=== PATIENT | male | born 1995 | race Caucasian/White ===

== ENCOUNTER 2023-11-20 10:43 | Emergency (ER) | payer OTHER, SELFPAY ==
[2023-11-20 10:48] VITALS: BP 126/79; PULSE 72; O2SAT 98
[2023-11-20 10:52] VITALS: BP 126/72; PULSE 65; RESP 16; TEMP 36.7; O2SAT 99; BMI 41.7
[2023-11-20] MEDS: LORazepam 2 MG/ML VIAL 1 MG IVPUSH (11:38)
--- NOTE | 2023-11-20 11:40 | ED.SEIZURE ---
HPI - Seizure General Chief Complaint: Seizure Stated Complaint: SZ @ DENTIST OFFICE,H/O SZ,NO MEDS PER EMS Time Seen by Provider: 11/20/23 11:33 Source: patient Mode of arrival: EMS Limitations: no limitations History of Present Illness HPI Narrative: 28-year-old male with history of seizures who presents emergency department for evaluation of seizure. Patient states that he was at the dentist's office in order to get a wisdom tooth pulled. He states that the dentist was injected medication in to his jaw when his vision faded to ocasio and then to black. He states that he then has no memory of what happened but then woke up and felt normal. Patient was sent to the emergency department from the dentist office for evaluation of possible seizure.. He states that he was told that these episodes are seizures but does not have a neurologist. He states that several years ago when he was in [place] had a similar event and initially had a normal EEG but then had an abnormal EEG. He was started on Keppra but stop taking the medication after he lost his insurance. He states that 1 month prior to coming to emergency department he had COVID-19 and had a fever as high as 106. He states that he got out of bed to go in to the bathtub cool off when he had another event where his vision faded to block any passed out. While he was getting an IV started and blood drawn here in the emergency department he again had another episode where his vision faded to black. Nurses described that the patient lost consciousness and had diffuse twitching of his muscles. When I went into the room the patient was awake and able to answer questions and I did not witness the event. Seizure History: Yes Related Data Allergies Allergy/AdvReac Type Severity Reaction Status Date / Time No Known Allergies Allergy Verified 11/20/23 10:52 Review of Systems Review of Systems: Yes all other systems are reviewed and are negative [facility] Past Medical History [facility] Narrative: Past medical history: Seizures. Social history: He denies tobacco alcohol and drug use. Medical History Seizure Social History Social History Smoked in Last 30 Days: No Use of substances other than those prescribed or required for medical reasons: No Advance Directives: No Physical Exam Vital Signs: Vital Signs: Last Vital Signs Temp 98.0 F 11/20/23 10:52 Pulse 72 11/20/23 13:11 Resp 13 11/20/23 13:11 BP 119/61 11/20/23 13:11 Pulse Ox 99 11/20/23 13:11 O2 Del Method Room Air 11/20/23 13:11 BMI result Body Mass Index 41.7 Vital signs were normal Exam: General: Awake, alert in no distress Head: Normocephalic, atraumatic EENT: PERRL, Lids normal, sclera normal, conjunctiva normal, nose normal , ears normal, throat without erythema or exudates Neck: Supple, no adenopathy, no trachea midline or C-spine tenderness Lung: breath sounds symmetric, no wheezing, rales or rhonchi Chest: symmetric movement, nontender Heart: regular rate and rhythm, normal S1, S2 no murmurs or rubs Abdomen: soft, non-tender, nondistended, normal bowel sounds Back: no vertebral tenderness, no CVAT Extremities: no deformities, moves all extremities symmetrically Neuro: Awake, alert, oriented, normal speech, cranial nerves intact, moves all extremities symmetrically Psych: Pleasant, cooperative Medications Administered Discontinued Medications Generic Name Dose Route Start Last Admin Trade Name Rupertq PRN Reason Stop Dose Admin Lorazepam 1 mg 11/20/23 11:34 11/20/23 11:38 Lorazepam 2 Mg/Ml Vial IVPUSH 11/20/23 11:35 1 mg STAT STA Administration Medical Decision Making Medical Decision Making [facility] Narrative: 28-year-old male with a seizure disorder who presents emergency department for evaluation for seizure-like event occurred at his dentist's office. Patient had 1 event here in the emergency department as well when he was getting his blood drawn and an IV started. Patient describes the event as his vision going from great and feeding to black in any loses consciousness. In the emergency department patient's event was consistent with vasovagal syncope triggered by the blood draw. Patient did tell me that he had an abnormal EEG in the past and was on Keppra but then stop the Keppra since he lost his insurance. Patient's vital signs were normal. Exam was unremarkable. Following evaluation was ordered: CBC, CMP, lactic acid Patient was treated with lorazepam 1 mg IV. 13:26 My impression of the patient's laboratory evaluation is as follows: WBC elevated 11,800, no anemia. Electrolytes were unremarkable. Glucose was elevated 117. LFTs were normal. Lactic acid was not elevated. Patient's event here in the emergency department and in the dentist office are more consistent vasovagal syncope than seizure. I did discuss this with the patient. Patient states he did have an abnormal EKG in the past this possibly may have a seizure disorder therefore I advised him to contact our neurology group follow-up. Patient was given printed and verbal instructions discharged home. Differential Diagnosis Differential Diagnoses: The differential diagnosis associated with the presentation includes Differential diagnosis includes was not limited to seizures, pseudoseizures, vasovagal syncope Admission/Observation Consideration of admission/observation: Escalation of care including admission/observation considered Lab Data MDM Lab Attestation statement: I reviewed the patient's lab results. 11/20/23 11:53 11/20/23 11:53 Labs: Lab Results 11/20/23 Range/Units 11:53 WBC 11.8 H (4.8-10.8) X10*3/uL RBC 5.60 (4.60-5.80) X10*6/uL Hgb 15.4 (14.0-18.0) g/dl Hct 46.0 (42.0-52.0) % MCV 82.1 (80.0-98.0) fL MCH 27.5 (27.0-33.0) pg MCHC 33.5 (31.0-36.0) g/dl RDW 12.5 (11.0-16.0) % Plt Count 374 (160-400) X10*3/uL MPV 8.8 L (9.4-12.4) fL Immature Gran % (Auto) 0.3 (0.0-0.4) % Neut % (Auto) 69.8 (45-73) % Lymph % (Auto) 19.7 L (20-40) % [place] % (Auto) 9.2 (2-11) % Eos % (Auto) 0.7 (0-4) % Baso % (Auto) 0.3 (0-2) % Lymph # (Auto) 2.3 (1.2-4.9) X10*3/uL [place] # (Auto) 1.1 (0.1-1.2) X10*3/uL Eos # (Auto) 0.1 (0.0-0.4) X10*3/uL Baso # (Auto) 0.0 (0.0-0.2) X10*3/uL Abs Immat Gran (auto) 0.04 H (0.00-0.03) X10*3/uL Absolute Neuts (auto) 8.2 (2.0-8.3) x10*3/uL Absolute Nucleated RBC 0.000 (0.0-0.012) X10*3/uL Nucleated RBC % (auto) 0.0 (0.0-0.2) /100WBC Sodium 140 (135-145) mmol/L Potassium 3.7 (3.3-5.1) mmol/L Chloride 109 H (96-108) mmol/L Carbon Dioxide 25 (22-29) mmol/L Anion Gap 10 L (12-20) BUN 9 (9-16) mg/dL Creatinine 0.81 (0.5-1.4) mg/dL Estim Creat Clear Calc 171.8 Estimated GFR > 60 Random Glucose 117 H (60-115) mg/dL Lactic Acid 1.6 (0.5-2.0) mmol/L Calcium 9.1 (8.4-10.2) mg/dL Total Bilirubin 0.4 (0.0-1.0) mg/dL AST 25 (5-37) U/L ALT 30 (0-40) U/L Alkaline Phosphatase 73 (39-117) U/L Total Protein 7.6 (6.5-8.0) g/dL Albumin 4.1 (3.5-5.0) g/dL Discharge Plan Discharge Clinical Impression: Vasovagal syncope Patient Disposition: Home, Self-Care Instructions: Syncope (ED) Additional Instructions: You did not have a seizure today but you had a vasovagal syncope (fainted) event, that was triggered by your dental procedure and by the ED nurse trying to draw blood/inserted IV here while your in the emergency department. When someone vasovagal syncope they can have muscle twitching (myotonic movement) which can look like a seizure but is different than the twitching seen with an epileptic (electrical) seizure. In the future if you are going to have a painful procedure let your providers know that you have vasovagal syncope and that you faint. They should make sure that your lying down flat before they perform any procedure on you. You did tell me that you had an abnormal EEG in the past therefore you should follow-up with our neurology for re-evaluation to make sure that you do not also have epileptic seizures. Follow-up with your doctor in 2 days. Please return to the emergency department if your symptoms get worse or if you develop any symptoms that are concerning to you. Call our and neurology group to see if you get the next available appointment for re-evaluation. Referrals: Nael Chaudhary MD [Physician] - 2 weeks (Vasovagal syncope versus seizure, patient states he has had an abnormal EEG in the past)
--- NOTE | 2023-11-20 11:42 | PC.NURSE ---
Patient with seizure activity that lasted approximately 30 seconds. Provider notified, 1mg of ativan given via IV
[2023-11-20 11:58] LABS: MANUAL DIFF FLAG NO
[2023-11-20 12:07] LABS: Basophils Percent Auto 0.3 % (0-2); Eosinophils Absolute Auto 0.1 X10*3/uL (0.0-0.4); Eosinophils Percent Auto 0.7 % (0-4); Hemoglobin 15.4 g/dl (14.0-18.0); Imm Gran Abs Auto 0.04 X10*3/uL (0.00-0.03); Imm Gran Pct Auto 0.3 % (0.0-0.4); Lymphocytes Absolute Auto 2.3 X10*3/uL (1.2-4.9); Lymphocytes Percent Auto 19.7 % (20-40); Mean Corpuscular HGB Conc 33.5 g/dl (31.0-36.0); Mean Corpuscular Hemoglobin 27.5 pg (27.0-33.0); Mean Corpuscular Volume 82.1 fL (80.0-98.0); Mean Platelet Volume 8.8 fL (9.4-12.4); Monocytes Absolute Auto 1.1 X10*3/uL (0.1-1.2); Monocytes Percent Auto 9.2 % (2-11); Neutrophils Absolute Auto 8.2 x10*3/uL (2.0-8.3); Neutrophils Percent Auto 69.8 % (45-73); Platelet Count 374 X10*3/uL (160-400); Red Cell Distribution Width 12.5 % (11.0-16.0); White Blood Count 11.8 X10*3/uL (4.8-10.8)
[2023-11-20 12:11] LABS: Lactic Acid 1.6 mmol/L (0.5-2.0)
[2023-11-20 12:16] LABS: Alanine Aminotransferase 30 U/L (0-40); Albumin Level 4.1 g/dL (3.5-5.0); Alkaline Phosphatase 73 U/L (39-117); Anion Gap 10 (12-20); Aspartate Amino Transferase 25 U/L (5-37); Bilirubin Total 0.4 mg/dL (0.0-1.0); Blood Urea Nitrogen 9 mg/dL (9-16); Calcium 9.1 mg/dL (8.4-10.2); Carbon Dioxide 25 mmol/L (22-29); Chloride 109 mmol/L (96-108); Creatinine Clr Calc Pharmacy 171.8; Estimated Glomerular Filt Rate > 60; Glucose Random 117 mg/dL (60-115); Potassium 3.7 mmol/L (3.3-5.1); Sodium 140 mmol/L (135-145); Total Protein 7.6 g/dL (6.5-8.0)
[2023-11-20 13:11] VITALS: BP 119/61; PULSE 72; RESP 13; O2SAT 99
== END 2023-11-20 14:01 | disposition home or self-care (01) ==
PROVIDERS: Emergency Provider Emergency Medicine Emergency Medical Services; PCP Neuromusculoskeletal Medicine, Sports Medicine
DX: R55 Syncope and collapse (principal); R56.9 Unspecified convulsions; Z79.899 Other long term (current) drug therapy
CPT/HCPCS: 36415; 80053; 83605; 85025; 96374; 99284; J2060